=== PATIENT | male | born 1960 | race Caucasian/White ===

== ENCOUNTER 2022-08-31 00:15 | Emergency (ER) | payer MEDICAID ==
[~2022-08-31] VITALS: Ht 167.6 cm; Wt 73.0 kg
[2022-08-31] MEDS ORDERED: KETOROLAC 60MG/2ML VIAL IM ONE (00:45)
[2022-08-31] MEDS ORDERED: IBUP-2029 MT (03:48)
[2022-08-31 11:32] VITALS: BP 134/84
== END 2022-08-31 11:41 | disposition home or self-care (01) ==
LOC: ER 00:15
DX: S42.91XA Fracture of right shoulder girdle, part unspecified, initial encounter for closed fracture (principal); I10 Essential (primary) hypertension; W18.30XA Fall on same level, unspecified, initial encounter; Y93.89 Activity, other specified; Y92.89 Other specified places as the place of occurrence of the external cause; Y99.8 Other external cause status
CPT/HCPCS: 29105; 73030; 73060; 73070; 96372; 99284; J1885

== ENCOUNTER 2023-09-01 17:34 | Emergency (ER) | payer MEDICAID ==
[~2023-09-01] VITALS: Ht 167.6 cm; Wt 65.0 kg
[~2023-09-01 17:34] MED LIST: IBUP-2029 MT
[2023-09-01 17:44] VITALS: O2SAT 95
[2023-09-01 19:35] LABS: HEMATOCRIT. 31.4 % (42.0-52.0); HEMOGLOBIN. 10.8 g/dL (14.0-18.0); MEAN CORPUSCULAR HEMOGLOBIN 33.5 pg (28.0-32.0); MEAN CORPUSCULAR HGB CONC 34.5 g/dL (31.0-37.0); MEAN CORPUSCULAR VOLUME 97.2 fL (80.0-94.0); MEAN PLATELET VOLUME 7.3 fl (7.4-10.4); PLATELET 269 x1000/uL (130-400); RED BLOOD CELL COUNT 3.23 mill/uL (4.7-6.1); RED CELL DISTRIBUTION WIDTH 15.6 % (11.6-14.6); WHITE BLOOD COUNT 7.2 x1000/uL (4.5-11.0)
[2023-09-01 19:37] LABS: DIFFERENTIAL COMMENT 1
[2023-09-01 19:48] LABS: ALANINE AMINOTRANSFERASE 30 IU/L (10-49); ALBUMIN 3.7 g/dL (3.2-4.8); ASPARTATE AMINOTRANSFERASE 46 IU/L (<34); BILIRUBIN TOTAL 0.9 mg/dL (0.1-1.0); CALCIUM 8.6 mg/dL (8.7-10.4); CARBON DIOXIDE 25 mEq/L (21-32); CHLORIDE 99 mEq/L (98-107); CREATININE 0.5 mg/dL (0.6-1.3); ETHANOL BLOOD 31 mg/dL (<10); GLUCOSE 79 mg/dL (70-105); POTASSIUM 3.6 mEq/L (3.5-5.1); PROTEIN TOTAL 6.8 g/dL (6.0-8.3); SODIUM 132 mEq/L (136-145); UREA NITROGEN BLOOD 9 mg/dL (9-23)
[2023-09-01 20:20] LABS: PLATELET ESTIMATE NORMAL
[2023-09-01 21:20] VITALS: BP 128/66; PULSE 52; RESP 14; TEMP 97.5
== END 2023-09-01 19:20 | disposition home or self-care (01) ==
LOC: ER 17:34
DX: G89.29 Other chronic pain (principal); M79.671 Pain in right foot; F12.90 Cannabis use, unspecified, uncomplicated; I10 Essential (primary) hypertension; F10.129 Alcohol abuse with intoxication, unspecified
CPT/HCPCS: 36415; 73630; 80053; 80320; 85025; 99284; G0480

== ENCOUNTER 2023-11-02 08:37 | Inpatient (IN) | payer MEDICAID ==
[~2023-11-02] VITALS: Ht 175.3 cm; Wt 63.5 kg
[2023-11-02 09:56] LABS: BASOPHILS % 0.8 % (0.0-2.0); EOSINOPHILS % 1.1 % (0.0-5.0); HEMATOCRIT. 39.5 % (42.0-52.0); HEMOGLOBIN. 13.1 g/dL (14.0-18.0); LYMPHOCYTES % 24.6 % (20.0-50.0); MEAN CORPUSCULAR HEMOGLOBIN 32.5 pg (28.0-32.0); MEAN CORPUSCULAR HGB CONC 33.2 g/dL (31.0-37.0); MEAN CORPUSCULAR VOLUME 97.8 fL (80.0-94.0); MEAN PLATELET VOLUME 7.4 fl (7.4-10.4); MONOCYTES % 12.9 % (2.0-8.0); NEUTROPHILS % 60.6 % (40.0-76.0); PLATELET 277 x1000/uL (130-400); RED BLOOD CELL COUNT 4.04 mill/uL (4.7-6.1); RED CELL DISTRIBUTION WIDTH 16.7 % (11.6-14.6); WHITE BLOOD COUNT 6.3 x1000/uL (4.5-11.0)
[2023-11-02 10:19] LABS: ALANINE AMINOTRANSFERASE 31 IU/L (10-49); ALBUMIN 4.6 g/dL (3.2-4.8); ASPARTATE AMINOTRANSFERASE 36 IU/L (<34); BILIRUBIN TOTAL 0.4 mg/dL (0.1-1.0); CALCIUM 8.9 mg/dL (8.7-10.4); CARBON DIOXIDE 28 mEq/L (21-32); CHLORIDE 100 mEq/L (98-107); CREATININE 0.5 mg/dL (0.6-1.3); GLUCOSE 80 mg/dL (70-105); POTASSIUM 3.9 mEq/L (3.5-5.1); PROTEIN TOTAL 8.1 g/dL (6.0-8.3); SODIUM 134 mEq/L (136-145); UREA NITROGEN BLOOD 6 mg/dL (9-23)
[2023-11-02 18:55] LABS: CLARITY URINE CLEAR (CLEAR); COLOR URINE YELLOW (YELLOW); GLUCOSE URINE NEGATIVE (NEGATIVE); KETONES URINE TRACE (NEGATIVE); LEUKOCYTE ESTERASE URINE NEGATIVE (NEGATIVE); NITRITE URINE NEGATIVE (NEGATIVE); OCCULT BLOOD URINE NEGATIVE (NEGATIVE); PROTEIN URINE NEGATIVE (NEGATIVE)
[2023-11-05] MEDS ORDERED: CIPR500T5 MT ×2 (14:48→15:09)
[2023-11-05] MEDS ORDERED: SULF1TAB48 MT ×2 (14:48→15:09)
[2023-11-06] MEDS ORDERED: CLINDAMYCIN 600 MG in DEXTROSE 5% WATER 50 ML IV ONE (13:30)
[2023-11-06] MEDS: CLINDAMYCIN 600MG PREMIX 50 ML IV NR (14:25)
[2023-11-06] MEDS ORDERED: ONDANSETRON HCL 4MG/2ML INJ IV PRN (17:15)
[2023-11-06] MEDS ORDERED: CEFTRIAXONE 1GM/50ML 50 ML IV SCH (18:00)
[2023-11-06 20:00] VITALS: BP 142/86; PULSE 79; RESP 18; TEMP 98.4
[2023-11-06 20:17] VITALS: BP 142/86; PULSE 79; RESP 18; TEMP 97.2
[2023-11-06] MEDS: AMOXICILLIN/POTASSIUM CLAVULANATE 875/125MG TAB PO SCH (21:22)
[2023-11-06] MEDS: SULFAMETHOXAZOLE/TRIMETHOPRIM 800/160MG TABLET PO SCH (21:22)
[2023-11-07] VITALS: BP 108/57; PULSE 79; RESP 16; TEMP 97.3
[2023-11-07 04:00] VITALS: BP 119/78; PULSE 64; RESP 17; TEMP 99.2
[2023-11-07 08:00] VITALS: BP 124/60; PULSE 71; RESP 16; TEMP 98
[2023-11-07 12:00] VITALS: BP 114/50; PULSE 83; RESP 16; TEMP 97.9
[2023-11-07 16:00] VITALS: BP 125/68; PULSE 84; RESP 16; TEMP 97.7
[2023-11-07 20:00] VITALS: BP 130/72; PULSE 85; RESP 20; TEMP 97.9
[2023-11-08] VITALS: BP 117/62; PULSE 84; RESP 17; TEMP 98
[2023-11-08 04:00] VITALS: BP 118/71; PULSE 80; RESP 16; TEMP 97.4
[2023-11-08 08:00] VITALS: BP 126/70; PULSE 79; RESP 20; TEMP 97.9
[2023-11-08 12:00] VITALS: BP 115/69; PULSE 80; RESP 20; TEMP 98.1
[2023-11-08 16:00] VITALS: BP 127/69; PULSE 81; RESP 19; TEMP 98.6
[2023-11-08 20:00] VITALS: BP 111/73; PULSE 80; RESP 18; TEMP 99.3
[2023-11-09] VITALS: BP 121/78; PULSE 78; RESP 18; TEMP 98.8
[2023-11-09 04:00] VITALS: BP 122/69; PULSE 75; RESP 18; TEMP 98.9
[2023-11-09 08:00] VITALS: BP 99/53; PULSE 80; RESP 17; TEMP 97.3
[2023-11-09 16:00] VITALS: BP 117/66; PULSE 74; RESP 18; TEMP 96.9
[2023-11-09 20:00] VITALS: BP 115/63; PULSE 73; RESP 18; TEMP 100.2
[2023-11-09] MEDS: ACETAMINOPHEN 325MG TABLET PO PRN (20:47)
[2023-11-10] VITALS: BP 131/69; PULSE 77; RESP 19; TEMP 97.6
[2023-11-10 04:00] VITALS: BP 126/66; PULSE 70; RESP 18; TEMP 98.5
[2023-11-10 08:00] VITALS: BP 118/61; PULSE 67; RESP 19; TEMP 97.6
[2023-11-10 12:00] VITALS: BP 120/69; PULSE 72; RESP 19; TEMP 97
[2023-11-10 16:00] VITALS: BP 116/65; PULSE 70; RESP 19; TEMP 97.5
[2023-11-10 20:00] VITALS: BP 113/62; PULSE 79; RESP 18; TEMP 98.2
[2023-11-11 04:00] VITALS: BP 108/55; PULSE 68; RESP 18; TEMP 98.8
[2023-11-11 08:00] VITALS: BP 112/62; PULSE 71; RESP 18; TEMP 97.9
[2023-11-11 16:00] VITALS: BP 114/80; PULSE 76; RESP 17; TEMP 98.1
[2023-11-11 20:00] VITALS: BP 123/59; PULSE 77; RESP 16; TEMP 97.2
[2023-11-12 04:00] VITALS: BP 100/63; PULSE 75; RESP 16; TEMP 97.6
[2023-11-12 08:00] VITALS: BP 116/70; PULSE 81; RESP 19; TEMP 97.5
[2023-11-12 12:00] VITALS: BP 123/75; PULSE 80; RESP 19; TEMP 97.7
[2023-11-12 16:00] VITALS: BP 120/71; PULSE 79; RESP 19; TEMP 97.4
[2023-11-12 20:00] VITALS: BP 129/69; PULSE 75; RESP 20; TEMP 97.9
[2023-11-13] VITALS: BP 103/56; PULSE 64; RESP 20; TEMP 97.2
[2023-11-13 04:00] VITALS: BP 115/56; PULSE 68; RESP 20; TEMP 97.1
[2023-11-13 08:00] VITALS: BP 113/68; PULSE 75; RESP 19; TEMP 97.6
[2023-11-13 12:00] VITALS: BP 121/61; PULSE 73; RESP 18; TEMP 97.5
[2023-11-13] MEDS ORDERED: ONDANSETRON 4MG ODT PO PRN (19:33)
[2023-11-13 20:00] VITALS: BP 110/64; PULSE 89; RESP 20; TEMP 97.9
[2023-11-14] VITALS: BP 124/69; PULSE 78; RESP 20; TEMP 97.2
[2023-11-14 04:00] VITALS: BP 120/62; PULSE 75; RESP 20; TEMP 97.1
[2023-11-14 08:00] VITALS: BP 94/50; PULSE 60; RESP 19; TEMP 97.7
[2023-11-14 12:00] VITALS: BP 110/61; PULSE 66; RESP 19; TEMP 98.1
[2023-11-14 12:06] VITALS: BP 94/60; PULSE 69; TEMP 97.9; O2SAT 97
== END 2023-11-14 13:45 | disposition home health service (06) | DRG 351 ==
LOC: ER 09:06 → MICUSO 12:58 → UNDOADMIN 12:58 → 6EST 11-06 12:58 → EDBEDREQ 11-06 13:00 → EDBEDREQTM 11-06 13:00
PROVIDERS: ADMIT Internal Medicine; ATTEND Internal Medicine
DX: M79.672 Pain in left foot (principal); L97.522 Non-pressure chronic ulcer of other part of left foot with fat layer exposed; F10.10 Alcohol abuse, uncomplicated; I10 Essential (primary) hypertension; Z59.00 Homelessness unspecified; R26.9 Unspecified abnormalities of gait and mobility; Z89.432 Acquired absence of left foot
CPT/HCPCS: 36415; 71045; 73630; 80053; 81003; 83605; 85025; 87070; 87077; 87186; 97161; 99284; J3490; J7060